=== PATIENT | female | born 1945 | race Caucasian/White ===

== ENCOUNTER 2017-11-03 15:09 | Inpatient (IN) | payer OTHER, MEDICAID ==
[~2017-11-03] VITALS: Ht 165.1 cm; Wt 97.0 kg
[2017-11-03] MEDS ORDERED: methylPREDNISolone SOD SUCC 125 MG/2 ML VL IV ONE ×2 (15:30)
[2017-11-03] MEDS ORDERED: ALBUTEROL SULF 2.5 MG/0.5ML(0.5%) NEB SOLN HHN ONE (15:30)
[2017-11-03] MEDS ORDERED: IPRATROPIUM BROM 0.5 MG/2.5ML INH SOL HHN ONE (15:30)
[2017-11-03 16:28] LABS: Alanine Aminotransferase 19 U/L (13-56); Albumin 3.5 g/dL (3.4-5.0); Alkaline Phosphatase 67 U/L (45-117); Anion Gap 7 (5-15); Aspartate Aminotransferase 29 U/L (15-37); Bilirubin, Total 0.4 mg/dL (0.2-1.0); Blood Urea Nitrogen 27 mg/dL (7-18); Calcium 8.6 mg/dL (8.5-10.1); Carbon Dioxide 28 mmol/L (21-32); Chloride 103 mmol/L (98-107); GFR African American 70 mL/min; GFR Non-African American 58 mL/min; Glucose 122 mg/dL (74-106); Magnesium 2.3 mg/dL (1.6-2.6); Potassium 4.3 mmol/L (3.5-5.1); Sodium 138 mmol/L (136-145); Total Protein 7.7 g/dL (6.4-8.2)
[2017-11-03 16:29] LABS: Basophils # (auto) 0 uL; Basophils % (auto) 0.4 % (0.0-2.0); Eosinophils # (auto) 0 uL; Eosinophils % (auto) 0.7 % (0.0-7.0); Hematocrit 49.5 % (36.0-46.0); Hemoglobin 16.3 g/dL (12.2-16.2); Lymphocytes # (auto) 1.1 uL; Lymphocytes % (auto) 17.5 % (10.0-50.0); Mean Corpuscular Hemoglobin 29.9 pg (28.0-32.0); Mean Corpuscular Hgb Conc. 32.9 g/dL (32.0-36.0); Mean Corpuscular Volume 90.9 fL (80.0-100.0); Monocytes # (auto) 0.9 uL; Monocytes % (auto) 13.7 % (0.0-12.0); Neutrophils # (auto) 4.3 uL; Neutrophils % (auto) 67.7 % (37.0-80.0); Nucleated Red Blood Cells % 0.8 %; Platelet Count (auto) 230 10^3/uL (140-450); Red Blood Cells 5.45 10^6/uL (4.0-5.20); Red Cell Distribution Width 14.8 % (11.8-14.3); White Blood Cell 6.4 10^3/uL (4.4-10.8)
[2017-11-03] MEDS ORDERED: MORPHINE SULFATE 10 MG/ML INJ 1ML SDV IV PRN ×2 (17:15)
[2017-11-03] MEDS ORDERED: ACETAMINOPHEN 500 MG TAB PO PRN (17:15)
[2017-11-03] MEDS ORDERED: LORazepam 0.5 MG TAB PO PRN (17:15)
[2017-11-03] MEDS ORDERED: OSELTAMIVIR 75 MG CAP PO ONE (17:15)
[2017-11-03] MEDS ORDERED: TEMAZEPAM 15 MG CAP PO PRN (17:15)
[2017-11-03] MEDS ORDERED: NITROGLYCERIN 0.4 MG SL TAB SL PRN (17:15)
[2017-11-03] MEDS ORDERED: PROMETHAZINE HCL 25 MG/ML 1ML IV PRN (17:15)
[2017-11-03] MEDS ORDERED: LACTULOSE 20Gm/30ML SOLN PO PRN (17:15)
[2017-11-03] MEDS: ALBUTEROL SULF 2.5 MG/0.5ML(0.5%) NEB SOLN NEB SCH (18:00)
[2017-11-03] MEDS: IPRATROPIUM BROM 0.5 MG/2.5ML INH SOL NEB SCH (18:00)
[2017-11-03] MEDS: SODIUM CHLORIDE 0.9% 1,000 ML IV SCH (18:00)
[2017-11-03] MEDS: methylPREDNISolone SOD SUCC 40 MG/ML VL IV SCH ×2 (18:59→23:58)
[2017-11-03] MEDS ORDERED: LORazepam 2MG/ML-1ML VIAL ONE (21:06)
[2017-11-03] MEDS: LORazepam 2MG/ML-1ML VIAL IV PRN (21:16)
[2017-11-03] MEDS ORDERED: MIDAZOLAM DRIP 50 mg/50mL 50 ML IV SCH (21:51)
[2017-11-03] MEDS ORDERED: PROPOFOL 100 ML IV SCH (21:51)
[2017-11-03] MEDS ORDERED: ETOMIDATE (2MG/ML) 20ML VIAL IV ONE (22:00)
[2017-11-03] MEDS ORDERED: SUCCINYLCHOLINE CHLORIDE 20 MG/ML 10ML VIAL IV ONE (22:00)
[2017-11-03] MEDS ORDERED: ALBUTEROL SULF 2.5 MG/0.5ML(0.5%) NEB SOLN ONE (22:10)
[2017-11-03] MEDS ORDERED: ALBUTEROL SULF 2.5 MG/0.5ML(0.5%) NEB SOLN NEB ONE (22:15)
[2017-11-03] MEDS ORDERED: SODIUM CHLORIDE 0.9% 500 ML IV ONE (22:30)
[2017-11-04] VITALS (11 sets, daily range): BP systolic 102–147; BP diastolic 59–74
[2017-11-04] MEDS: ALBUTEROL SULF 2.5 MG/0.5ML(0.5%) NEB SOLN NEB SCH ×4 (00:15→18:34)
[2017-11-04] MEDS: IPRATROPIUM BROM 0.5 MG/2.5ML INH SOL NEB SCH ×4 (00:15→18:34)
[2017-11-04] MEDS ORDERED: fentaNYL Drip 2500mCg/250mlNS 250 ML IV SCH (03:02)
[2017-11-04] MEDS ORDERED: fentaNYL Drip 2500mCg/250mlNS 250 ML IV ONE (03:07)
[2017-11-04] MEDS ORDERED: SUCCINYLCHOLINE CHLORIDE 20 MG/ML 10ML VIAL IV ONE (03:15)
[2017-11-04] MEDS: PROPOFOL 100 ML IV SCH ×2 (03:21→23:42)
[2017-11-04] MEDS: fentaNYL Drip 2500mCg/250mlNS 250 ML IV SCH (03:24)
[2017-11-04] MEDS ORDERED: PROPOFOL 100 ML IV ONE (03:35)
[2017-11-04] MEDS: methylPREDNISolone SOD SUCC 40 MG/ML VL IV SCH ×3 (06:14→18:30)
[2017-11-04] MEDS: SODIUM CHLORIDE 0.9% 1,000 ML IV SCH ×2 (06:45→19:31)
[2017-11-04 07:38] LABS: Cholesterol 144 mg/dL (< 200); HDL Cholesterol 59 mg/dL (40-59); LDL Cholesterol 79 mg/dL (< 100); Triglycerides 101 mg/dL (< 150)
[2017-11-04] MEDS ORDERED: OSELTAMIVIR 75 MG CAP PO SCH (10:00)
[2017-11-04] MEDS: LEVOFLOXACIN 500MG 100 ML IV SCH (11:00)
[2017-11-04] MEDS: PANTOPRAZOLE 40 MG TAB PO SCH (11:00)
[2017-11-04 13:34] LABS: Urine Bacteria NONE SEEN /hpf (None Seen); Urine Blood 1+ /uL (Negative); Urine Specific Gravity 1.031 (1.001-1.035); Urine WBC 3 /hpf (0 - 5)
[2017-11-04] MEDS ORDERED: ENOXAPARIN SOD 40 MG/0.4 ML SYRINGE SC ONE (17:00)
[2017-11-04] MEDS ORDERED: IOHEXOL 350 MG/ML 100ML IJ ONE (21:13)
[2017-11-05] VITALS (68 sets, daily range): BP systolic 95–150; BP diastolic 44–85
[2017-11-05] MEDS: methylPREDNISolone SOD SUCC 40 MG/ML VL IV SCH ×4 (00:18→17:45)
[2017-11-05] MEDS: ALBUTEROL SULF 2.5 MG/0.5ML(0.5%) NEB SOLN NEB SCH ×4 (00:56→19:15)
[2017-11-05] MEDS: IPRATROPIUM BROM 0.5 MG/2.5ML INH SOL NEB SCH ×4 (00:56→19:15)
[2017-11-05 04:54] LABS: Basophils # (auto) 0 uL; Basophils % (auto) 0.2 % (0.0-2.0); Eosinophils # (auto) 0 uL; Hematocrit 43.7 % (36.0-46.0); Hemoglobin 14.4 g/dL (12.2-16.2); Lymphocytes # (auto) 0.4 uL; Lymphocytes % (auto) 5.3 % (10.0-50.0); Mean Corpuscular Hemoglobin 29.7 pg (28.0-32.0); Mean Corpuscular Hgb Conc. 32.9 g/dL (32.0-36.0); Mean Corpuscular Volume 90.3 fL (80.0-100.0); Monocytes # (auto) 0.5 uL; Monocytes % (auto) 5.7 % (0.0-12.0); Neutrophils # (auto) 7.4 uL; Neutrophils % (auto) 88.8 % (37.0-80.0); Nucleated Red Blood Cells % 0.1 %; Platelet Count (auto) 240 10^3/uL (140-450); Red Blood Cells 4.83 10^6/uL (4.0-5.20); Red Cell Distribution Width 14.3 % (11.8-14.3); White Blood Cell 8.3 10^3/uL (4.4-10.8)
[2017-11-05 05:10] LABS: Albumin 2.9 g/dL (3.4-5.0); BUN/Creatinine Ratio 37.7; Calcium 8.4 mg/dL (8.5-10.1); Potassium 3.9 mmol/L (3.5-5.1)
[2017-11-05 05:13] LABS: Bilirubin, Total 0.3 mg/dL (0.2-1.0); Total Protein 6.5 g/dL (6.4-8.2)
[2017-11-05] MEDS: fentaNYL Drip 2500mCg/250mlNS 250 ML IV SCH ×2 (05:45→13:56)
[2017-11-05] MEDS: MIDAZOLAM DRIP 50 mg/50mL 50 ML IV SCH ×2 (08:11→20:00)
[2017-11-05] MEDS: SODIUM CHLORIDE 0.9% 1,000 ML IV SCH ×2 (09:04→11:44)
[2017-11-05] MEDS: ENOXAPARIN SOD 40 MG/0.4 ML SYRINGE SC SCH (11:44)
[2017-11-05] MEDS: LEVOFLOXACIN 500MG 100 ML IV SCH (11:44)
[2017-11-05] MEDS: PANTOPRAZOLE 40 MG TAB PO SCH (11:44)
[2017-11-05] MEDS: TERBUTALINE SULFATE 5 MG TAB PO SCH ×2 (12:17→22:23)
[2017-11-05] MEDS: BUDESONIDE (INHALATION) 0.5 MG/2 ML NEB NEB SCH (19:16)
[2017-11-06] VITALS (48 sets, daily range): BP systolic 103–149; BP diastolic 43–81
[2017-11-06] MEDS: IPRATROPIUM BROM 0.5 MG/2.5ML INH SOL NEB SCH ×4 (00:18→19:11)
[2017-11-06] MEDS: ALBUTEROL SULF 2.5 MG/0.5ML(0.5%) NEB SOLN NEB SCH ×4 (00:18→19:11)
[2017-11-06] MEDS ORDERED: METO25TA5 PO (01:53)
[2017-11-06] MEDS ORDERED: LEVO175T31 PO (01:56)
[2017-11-06] MEDS ORDERED: DIGO0.1262 PO (01:57)
[2017-11-06] MEDS ORDERED: [UNRECOGNIZED DRUG - CODE] PO (02:00)
[2017-11-06] MEDS ORDERED: SERT-274 PO (02:01)
[2017-11-06] MEDS ORDERED: PRAV20TA3 PO (02:03)
[2017-11-06] MEDS ORDERED: ALBU2TAB4 PO (02:07)
[2017-11-06] MEDS ORDERED: ALBUAER3 IN (02:08)
[2017-11-06] MEDS ORDERED: UMEC1AER IN (02:09)
[2017-11-06 05:05] LABS: Basophils # (auto) 0 uL; Eosinophils # (auto) 0 uL; Hemoglobin 14.4 g/dL (12.2-16.2); Lymphocytes # (auto) 0.3 uL; Lymphocytes % (auto) 4.4 % (10.0-50.0); Mean Corpuscular Hemoglobin 30.2 pg (28.0-32.0); Mean Corpuscular Hgb Conc. 33.5 g/dL (32.0-36.0); Mean Corpuscular Volume 90.1 fL (80.0-100.0); Monocytes # (auto) 0.5 uL; Monocytes % (auto) 6.6 % (0.0-12.0); Neutrophils # (auto) 6.6 uL; Nucleated Red Blood Cells % 0.1 %; Platelet Count (auto) 223 10^3/uL (140-450); Red Blood Cells 4.78 10^6/uL (4.0-5.20); Red Cell Distribution Width 14.3 % (11.8-14.3); White Blood Cell 7.5 10^3/uL (4.4-10.8)
[2017-11-06 05:15] LABS: Albumin 2.8 g/dL (3.4-5.0); BUN/Creatinine Ratio 44.8; Bilirubin, Total 0.3 mg/dL (0.2-1.0); Calcium 8.1 mg/dL (8.5-10.1); Potassium 3.8 mmol/L (3.5-5.1); Total Protein 6.2 g/dL (6.4-8.2)
[2017-11-06] MEDS: MIDAZOLAM DRIP 50 mg/50mL 50 ML IV SCH ×4 (05:36→22:08)
[2017-11-06] MEDS: BUDESONIDE (INHALATION) 0.5 MG/2 ML NEB NEB SCH ×2 (06:38→19:12)
[2017-11-06] MEDS: PANTOPRAZOLE 40 MG TAB PO SCH (10:26)
[2017-11-06] MEDS: TERBUTALINE SULFATE 5 MG TAB PO SCH ×2 (10:26→21:44)
[2017-11-06] MEDS: ENOXAPARIN SOD 40 MG/0.4 ML SYRINGE SC SCH (10:26)
[2017-11-06] MEDS: LEVOFLOXACIN 500MG 100 ML IV SCH (10:26)
[2017-11-06] MEDS: SODIUM CHLORIDE 0.9% 1,000 ML IV SCH (11:44)
[2017-11-06] MEDS: methylPREDNISolone SOD SUCC 40 MG/ML VL IV SCH ×4 (12:00→23:44)
[2017-11-07] VITALS (83 sets, daily range): BP systolic 96–166; BP diastolic 40–123
[2017-11-07] MEDS: IPRATROPIUM BROM 0.5 MG/2.5ML INH SOL NEB SCH ×4 (00:18→19:36)
[2017-11-07] MEDS: ALBUTEROL SULF 2.5 MG/0.5ML(0.5%) NEB SOLN NEB SCH ×4 (00:18→19:37)
[2017-11-07] MEDS: fentaNYL Drip 2500mCg/250mlNS 250 ML IV SCH ×2 (00:56→19:50)
[2017-11-07 04:26] LABS: Basophils # (auto) 0 uL; Basophils % (auto) 0.1 % (0.0-2.0); Eosinophils # (auto) 0 uL; Hemoglobin 14.8 g/dL (12.2-16.2); Lymphocytes # (auto) 0.4 uL; Lymphocytes % (auto) 5.4 % (10.0-50.0); Mean Corpuscular Hemoglobin 30.3 pg (28.0-32.0); Mean Corpuscular Hgb Conc. 33.6 g/dL (32.0-36.0); Mean Corpuscular Volume 90.1 fL (80.0-100.0); Monocytes # (auto) 0.3 uL; Monocytes % (auto) 5.2 % (0.0-12.0); Neutrophils # (auto) 5.8 uL; Neutrophils % (auto) 89.3 % (37.0-80.0); Platelet Count (auto) 232 10^3/uL (140-450); Red Blood Cells 4.88 10^6/uL (4.0-5.20); Red Cell Distribution Width 14.5 % (11.8-14.3); White Blood Cell 6.5 10^3/uL (4.4-10.8)
[2017-11-07 04:55] LABS: Albumin 2.8 g/dL (3.4-5.0); BUN/Creatinine Ratio 44.3; Bilirubin, Total 0.2 mg/dL (0.2-1.0); Calcium 7.9 mg/dL (8.5-10.1); Potassium 4.3 mmol/L (3.5-5.1); Total Protein 6.3 g/dL (6.4-8.2)
[2017-11-07] MEDS: SODIUM CHLORIDE 0.9% 1,000 ML IV SCH ×4 (05:00→23:57)
[2017-11-07] MEDS: methylPREDNISolone SOD SUCC 40 MG/ML VL IV SCH ×4 (05:35→23:57)
[2017-11-07] MEDS: BUDESONIDE (INHALATION) 0.5 MG/2 ML NEB NEB SCH ×2 (06:51→22:27)
[2017-11-07] MEDS ORDERED: DEXMEDETOMIDINE HCL 400 MCG in D5W 5% 96 ML IV SCH (08:00)
[2017-11-07] MEDS: LEVOFLOXACIN 500MG 100 ML IV SCH (10:16)
[2017-11-07] MEDS: TERBUTALINE SULFATE 5 MG TAB PO SCH ×2 (10:16→21:38)
[2017-11-07] MEDS: PANTOPRAZOLE 40 MG TAB PO SCH (10:16)
[2017-11-07] MEDS: ENOXAPARIN SOD 40 MG/0.4 ML SYRINGE SC SCH (10:16)
[2017-11-07] MEDS: LORazepam 2MG/ML-1ML VIAL IV PRN (10:57)
[2017-11-07] MEDS: MIDAZOLAM DRIP 50 mg/50mL 50 ML IV SCH (13:46)
[2017-11-08] VITALS (91 sets, daily range): BP systolic 101–169; BP diastolic 36–102
[2017-11-08] MEDS: IPRATROPIUM BROM 0.5 MG/2.5ML INH SOL NEB SCH ×4 (00:26→18:04)
[2017-11-08] MEDS: ALBUTEROL SULF 2.5 MG/0.5ML(0.5%) NEB SOLN NEB SCH ×4 (00:26→18:04)
[2017-11-08] MEDS: SODIUM CHLORIDE 0.9% 1,000 ML IV SCH ×3 (02:35→11:21)
[2017-11-08 04:20] LABS: Basophils # (auto) 0 uL; Basophils % (auto) 0.1 % (0.0-2.0); Eosinophils # (auto) 0 uL; Hematocrit 46.2 % (36.0-46.0); Hemoglobin 15.3 g/dL (12.2-16.2); Lymphocytes # (auto) 0.4 uL; Lymphocytes % (auto) 6.4 % (10.0-50.0); Mean Corpuscular Hemoglobin 30.2 pg (28.0-32.0); Mean Corpuscular Hgb Conc. 33.1 g/dL (32.0-36.0); Mean Corpuscular Volume 91.3 fL (80.0-100.0); Monocytes # (auto) 0.3 uL; Monocytes % (auto) 4.4 % (0.0-12.0); Neutrophils # (auto) 5.5 uL; Neutrophils % (auto) 89.1 % (37.0-80.0); Nucleated Red Blood Cells % 0.1 %; Platelet Count (auto) 232 10^3/uL (140-450); Red Blood Cells 5.06 10^6/uL (4.0-5.20); Red Cell Distribution Width 14.8 % (11.8-14.3); White Blood Cell 6.2 10^3/uL (4.4-10.8)
[2017-11-08 04:47] LABS: Albumin 2.9 g/dL (3.4-5.0); BUN/Creatinine Ratio 48.8; Bilirubin, Total 0.3 mg/dL (0.2-1.0); Potassium 4.5 mmol/L (3.5-5.1); Total Protein 6.7 g/dL (6.4-8.2)
[2017-11-08] MEDS: methylPREDNISolone SOD SUCC 40 MG/ML VL IV SCH ×3 (05:34→20:01)
[2017-11-08] MEDS: BUDESONIDE (INHALATION) 0.5 MG/2 ML NEB NEB SCH ×2 (06:46→18:04)
[2017-11-08] MEDS: TERBUTALINE SULFATE 5 MG TAB PO SCH ×2 (09:59→22:06)
[2017-11-08] MEDS: LEVOFLOXACIN 500MG 100 ML IV SCH (09:59)
[2017-11-08] MEDS: ENOXAPARIN SOD 40 MG/0.4 ML SYRINGE SC SCH (09:59)
[2017-11-08] MEDS: PANTOPRAZOLE 40 MG TAB PO SCH (09:59)
[2017-11-09] VITALS (95 sets, daily range): BP systolic 121–184; BP diastolic 56–119
[2017-11-09] MEDS: MIDAZOLAM DRIP 50 mg/50mL 50 ML IV SCH (00:07)
[2017-11-09] MEDS: methylPREDNISolone SOD SUCC 40 MG/ML VL IV SCH ×4 (00:07→21:44)
[2017-11-09] MEDS: ALBUTEROL SULF 2.5 MG/0.5ML(0.5%) NEB SOLN NEB SCH ×5 (00:20→23:50)
[2017-11-09] MEDS: IPRATROPIUM BROM 0.5 MG/2.5ML INH SOL NEB SCH ×5 (00:20→23:50)
[2017-11-09] MEDS: fentaNYL Drip 2500mCg/250mlNS 250 ML IV SCH ×2 (01:37→14:11)
[2017-11-09 03:58] LABS: Calcium 8.4 mg/dL (8.5-10.1); Potassium 4.6 mmol/L (3.5-5.1)
[2017-11-09] MEDS: SODIUM CHLORIDE 0.9% 1,000 ML IV SCH ×2 (04:45→15:21)
[2017-11-09] MEDS: BUDESONIDE (INHALATION) 0.5 MG/2 ML NEB NEB SCH ×2 (06:25→18:13)
[2017-11-09] MEDS: TERBUTALINE SULFATE 5 MG TAB PO SCH (10:09)
[2017-11-09] MEDS: ENOXAPARIN SOD 40 MG/0.4 ML SYRINGE SC SCH (10:09)
[2017-11-09] MEDS: LEVOFLOXACIN 500MG 100 ML IV SCH (10:09)
[2017-11-09] MEDS: PANTOPRAZOLE 40 MG TAB PO SCH (10:10)
[2017-11-09] MEDS: ALBUTEROL SULF 2.5 MG/0.5ML(0.5%) NEB SOLN NEB PRN (10:48)
[2017-11-09] MEDS: LORazepam 2MG/ML-1ML VIAL IV PRN ×3 (11:08→21:44)
[2017-11-09] MEDS: HYDROcodone-ACET 5/325MG TAB PO PRN (11:08)
[2017-11-10] VITALS (79 sets, daily range): BP systolic 81–189; BP diastolic 38–105
[2017-11-10] MEDS: TERBUTALINE SULFATE 5 MG TAB PO SCH ×3 (00:33→22:56)
[2017-11-10] MEDS: LORazepam 2MG/ML-1ML VIAL IV PRN ×2 (04:05→10:54)
[2017-11-10 04:33] LABS: BUN/Creatinine Ratio 55.2; Calcium 8.2 mg/dL (8.5-10.1); Potassium 4.9 mmol/L (3.5-5.1)
[2017-11-10] MEDS: ALBUTEROL SULF 2.5 MG/0.5ML(0.5%) NEB SOLN NEB SCH ×3 (06:17→18:38)
[2017-11-10] MEDS: IPRATROPIUM BROM 0.5 MG/2.5ML INH SOL NEB SCH ×3 (06:17→18:37)
[2017-11-10] MEDS: BUDESONIDE (INHALATION) 0.5 MG/2 ML NEB NEB SCH ×2 (06:18→22:10)
[2017-11-10] MEDS: SODIUM CHLORIDE 0.9% 1,000 ML IV SCH (08:00)
[2017-11-10] MEDS: fentaNYL Drip 2500mCg/250mlNS 250 ML IV SCH (08:00)
[2017-11-10] MEDS ORDERED: CHLORHEXIDINE 0.12% ORAL rinse 473ML MT ONE (08:19)
[2017-11-10] MEDS: ENOXAPARIN SOD 40 MG/0.4 ML SYRINGE SC SCH (10:00)
[2017-11-10] MEDS: methylPREDNISolone SOD SUCC 40 MG/ML VL IV SCH ×2 (10:00→22:56)
[2017-11-10] MEDS: PANTOPRAZOLE 40 MG TAB PO SCH (10:00)
[2017-11-10] MEDS: LEVOFLOXACIN 500MG 100 ML IV SCH (10:00)
[2017-11-10] MEDS: ALBUTEROL SULF 2.5 MG/0.5ML(0.5%) NEB SOLN NEB PRN (10:38)
[2017-11-10] MEDS ORDERED: EPINEPHrine HCL 0.5 ML NEB ONE (12:38)
[2017-11-10] MEDS ORDERED: EPINEPHrine HCL 0.5 ML NEB NEB ONE (12:45)
[2017-11-10] MEDS ORDERED: ETOMIDATE (2MG/ML) 20ML VIAL IV ONE (12:58)
[2017-11-10] MEDS ORDERED: PROPOFOL 100 ML IV ONE (12:59)
[2017-11-10] MEDS: PROPOFOL 100 ML IV SCH ×3 (13:00→18:50)
[2017-11-10] MEDS ORDERED: VANCOMYCIN PER PHARMACY 0 MG IV SCH (13:30)
[2017-11-10] MEDS ORDERED: PIPERACILLIN-TAZOB 3.375GM 50 ML IV ONE (13:30)
[2017-11-10] MEDS ORDERED: PIPERACILLIN-TAZOB 3.375GM 50 ML IV SCH (13:30)
[2017-11-10] MEDS: VANCOMYCIN 1,250 MG in D5W 5% 250 ML IV SCH (15:00)
[2017-11-10] MEDS: PIPERACILLIN-TAZOB 3.375GM 50 ML IV SCH (18:00)
[2017-11-10] MEDS: FUROSEMIDE 20 MG/2 ML VIAL IV SCH (18:00)
[2017-11-10] MEDS ORDERED: LIDOCAINE 1% HCL (LOCAL ANESTH.) INJ 20ML MDV ID ONE (19:30)
[2017-11-10] MEDS: SODIUM CHLOR 0.9% PF (SALINE LOCK) 10ML VIAL IV SCH (22:55)
[2017-11-10] MEDS: NYSTATIN (MOUTH-THROAT) 500,000 UNITS/5 ML SUSP MT SCH ×2 (22:55→22:57)
[2017-11-11] VITALS (81 sets, daily range): BP systolic 97–157; BP diastolic 39–96
[2017-11-11] MEDS: PIPERACILLIN-TAZOB 3.375GM 50 ML IV SCH ×4 (00:02→18:18)
[2017-11-11] MEDS: VANCOMYCIN 1,250 MG in D5W 5% 250 ML IV SCH ×2 (03:04→15:00)
[2017-11-11 03:52] LABS: Basophils # (auto) 0 uL; Basophils % (auto) 0.2 % (0.0-2.0); Eosinophils # (auto) 0 uL; Hemoglobin 16.4 g/dL (12.2-16.2); Lymphocytes # (auto) 0.4 uL; Lymphocytes % (auto) 3.4 % (10.0-50.0); Mean Corpuscular Hgb Conc. 33.4 g/dL (32.0-36.0); Mean Corpuscular Volume 89.8 fL (80.0-100.0); Monocytes # (auto) 0.6 uL; Monocytes % (auto) 5.4 % (0.0-12.0); Neutrophils # (auto) 9.3 uL; Nucleated Red Blood Cells % 0.4 %; Platelet Count (auto) 185 10^3/uL (140-450); Red Blood Cells 5.45 10^6/uL (4.0-5.20); Red Cell Distribution Width 14.2 % (11.8-14.3); White Blood Cell 10.3 10^3/uL (4.4-10.8)
[2017-11-11 04:00] LABS: Albumin 2.7 g/dL (3.4-5.0); BUN/Creatinine Ratio 34.1; Calcium 8.5 mg/dL (8.5-10.1); Potassium 4.1 mmol/L (3.5-5.1)
[2017-11-11 04:02] LABS: Bilirubin, Total 2.6 mg/dL (0.2-1.0)
[2017-11-11] MEDS: IPRATROPIUM BROM 0.5 MG/2.5ML INH SOL NEB SCH ×4 (06:33→18:59)
[2017-11-11] MEDS: BUDESONIDE (INHALATION) 0.5 MG/2 ML NEB NEB SCH ×2 (06:34→19:00)
[2017-11-11] MEDS: ALBUTEROL SULF 2.5 MG/0.5ML(0.5%) NEB SOLN NEB SCH ×4 (06:34→19:00)
[2017-11-11] MEDS: FUROSEMIDE 20 MG/2 ML VIAL IV SCH ×2 (06:44→18:18)
[2017-11-11] MEDS: NYSTATIN (MOUTH-THROAT) 500,000 UNITS/5 ML SUSP MT SCH ×4 (06:44→23:37)
[2017-11-11] MEDS: SODIUM CHLOR 0.9% PF (SALINE LOCK) 10ML VIAL IV SCH ×2 (10:00→23:37)
[2017-11-11] MEDS: ENOXAPARIN SOD 40 MG/0.4 ML SYRINGE SC SCH (10:29)
[2017-11-11] MEDS: PANTOPRAZOLE 40 MG TAB PO SCH (10:29)
[2017-11-11] MEDS: methylPREDNISolone SOD SUCC 40 MG/ML VL IV SCH ×2 (10:29→23:37)
[2017-11-11] MEDS: TERBUTALINE SULFATE 5 MG TAB PO SCH ×2 (10:29→23:38)
[2017-11-11] MEDS ORDERED: TPN PER PHARMACY 0 ML IV SCH (16:30)
[2017-11-11] MEDS ORDERED: DEXTROSE (50%) 50ML SYRG IV SCH (20:00)
[2017-11-11] MEDS: CLINIMIX PER PHARMACY IV NR (20:54)
[2017-11-12] VITALS (111 sets, daily range): BP systolic 71–174; BP diastolic 36–109
[2017-11-12] MEDS: PIPERACILLIN-TAZOB 3.375GM 50 ML IV SCH ×4 (00:25→18:00)
[2017-11-12] MEDS: InsuLIN REG 1unit/0.01ml Soln (100units/ml) SC SCH ×4 (00:26→18:27)
[2017-11-12] MEDS: ACCU-CHEK COMFORT CURVE STRIP VI SCH ×4 (00:26→18:28)
[2017-11-12] MEDS: ALBUTEROL SULF 2.5 MG/0.5ML(0.5%) NEB SOLN NEB SCH ×4 (00:28→18:32)
[2017-11-12] MEDS: IPRATROPIUM BROM 0.5 MG/2.5ML INH SOL NEB SCH ×4 (00:28→18:32)
[2017-11-12] MEDS: VANCOMYCIN 1,250 MG in D5W 5% 250 ML IV SCH (03:46)
[2017-11-12 04:06] LABS: Hematocrit 51.5 % (36.0-46.0); Hemoglobin 17.1 g/dL (12.2-16.2); Mean Corpuscular Hemoglobin 29.6 pg (28.0-32.0); Mean Corpuscular Hgb Conc. 33.3 g/dL (32.0-36.0); Mean Corpuscular Volume 89.1 fL (80.0-100.0); Platelet Count (auto) 190 10^3/uL (140-450); Red Blood Cells 5.78 10^6/uL (4.0-5.20); Red Cell Distribution Width 14.4 % (11.8-14.3); White Blood Cell 11.7 10^3/uL (4.4-10.8)
[2017-11-12 04:19] LABS: Band Neutrophils % (manual) 0; Basophils % (manual) 0 (0.0-2.0); Blast Cells 0; Eosinophils % (manual) 0 (0-7); Metamyelocytes % 0; Myelocytes % 0; Promyelocytes % 0; Reactive Lymphocytes 0
[2017-11-12 04:23] LABS: Albumin 2.9 g/dL (3.4-5.0); BUN/Creatinine Ratio 35.1; Calcium 8.8 mg/dL (8.5-10.1); Potassium 4.1 mmol/L (3.5-5.1)
[2017-11-12 04:25] LABS: Bilirubin, Total 1.2 mg/dL (0.2-1.0); Total Protein 6.1 g/dL (6.4-8.2)
[2017-11-12 04:32] LABS: Magnesium 2.4 mg/dL (1.6-2.6); Phosphorus 4.7 mg/dL (2.5-4.90); Pre Albumin 33.3 mg/dL (20.0-40.0)
[2017-11-12] MEDS: FUROSEMIDE 20 MG/2 ML VIAL IV SCH ×2 (06:00→18:00)
[2017-11-12 06:18] LABS: Lymphocytes % (manual) 6 (10.0-50.0); Monocytes % (manual) 3 (0-12)
[2017-11-12] MEDS: BUDESONIDE (INHALATION) 0.5 MG/2 ML NEB NEB SCH ×2 (06:20→22:25)
[2017-11-12] MEDS: NYSTATIN (MOUTH-THROAT) 500,000 UNITS/5 ML SUSP MT SCH ×4 (06:56→22:20)
[2017-11-12] MEDS: NOREPINEPHRINE 8 MG/250ML KIT 250 ML IV SCH ×2 (07:00→14:50)
[2017-11-12] MEDS: PROPOFOL 100 ML IV SCH ×3 (08:25→20:30)
[2017-11-12] MEDS: ENOXAPARIN SOD 40 MG/0.4 ML SYRINGE SC SCH (10:35)
[2017-11-12] MEDS: PANTOPRAZOLE 40 MG/10 ML VIAL IV SCH (10:35)
[2017-11-12] MEDS: SODIUM CHLOR 0.9% PF (SALINE LOCK) 10ML VIAL IV SCH ×2 (10:36→21:35)
[2017-11-12] MEDS: methylPREDNISolone SOD SUCC 40 MG/ML VL IV SCH ×2 (10:37→21:36)
[2017-11-12] MEDS: TERBUTALINE SULFATE 5 MG TAB PO SCH ×2 (10:38→22:21)
[2017-11-12] MEDS: VANCOMYCIN 1,500 MG in D5W 5% 250 ML IV SCH (13:02)
[2017-11-12] MEDS: fentaNYL Drip 2500mCg/250mlNS 250 ML IV SCH ×2 (18:55→19:00)
[2017-11-12] MEDS: CLINIMIX PER PHARMACY IV NR (19:49)
[2017-11-12] MEDS ORDERED: TPN PER PHARMACY IV NR ×6 (20:00)
[2017-11-13] VITALS (99 sets, daily range): BP systolic 81–191; BP diastolic 36–105
[2017-11-13] MEDS: IPRATROPIUM BROM 0.5 MG/2.5ML INH SOL NEB SCH ×4 (00:21→18:53)
[2017-11-13] MEDS: ALBUTEROL SULF 2.5 MG/0.5ML(0.5%) NEB SOLN NEB SCH ×4 (00:21→18:53)
[2017-11-13] MEDS: PIPERACILLIN-TAZOB 3.375GM 50 ML IV SCH ×4 (00:28→17:37)
[2017-11-13] MEDS: ACCU-CHEK COMFORT CURVE STRIP VI SCH ×4 (00:28→17:42)
[2017-11-13] MEDS: InsuLIN REG 1unit/0.01ml Soln (100units/ml) SC SCH ×4 (00:28→17:42)
[2017-11-13] MEDS: VANCOMYCIN 1,500 MG in D5W 5% 250 ML IV SCH ×2 (01:02→21:18)
[2017-11-13 04:29] LABS: Hematocrit 47.9 % (36.0-46.0); Hemoglobin 16.2 g/dL (12.2-16.2); Mean Corpuscular Hgb Conc. 33.9 g/dL (32.0-36.0); Mean Corpuscular Volume 88.4 fL (80.0-100.0); Platelet Count (auto) 195 10^3/uL (140-450); Red Blood Cells 5.42 10^6/uL (4.0-5.20)
[2017-11-13 04:49] LABS: Albumin 2.6 g/dL (3.4-5.0); BUN/Creatinine Ratio 38.7; Bilirubin, Total 0.9 mg/dL (0.2-1.0); Calcium 8.1 mg/dL (8.5-10.1); Magnesium 2.6 mg/dL (1.6-2.6); Phosphorus 3.7 mg/dL (2.5-4.90); Potassium 3.9 mmol/L (3.5-5.1)
[2017-11-13 05:14] LABS: Band Neutrophils % (manual) 0; Eosinophils % (manual) 0 (0-7)
[2017-11-13 05:15] LABS: Basophils % (manual) 0 (0.0-2.0); Blast Cells 0; Metamyelocytes % 0; Myelocytes % 0; Promyelocytes % 0; Reactive Lymphocytes 0
[2017-11-13] MEDS: NYSTATIN (MOUTH-THROAT) 500,000 UNITS/5 ML SUSP MT SCH ×4 (05:51→22:02)
[2017-11-13] MEDS: FUROSEMIDE 20 MG/2 ML VIAL IV SCH ×2 (05:51→17:38)
[2017-11-13] MEDS: BUDESONIDE (INHALATION) 0.5 MG/2 ML NEB NEB SCH ×2 (06:35→18:54)
[2017-11-13 07:31] LABS: Lymphocytes % (manual) 7 (10.0-50.0); Monocytes % (manual) 5 (0-12)
[2017-11-13] MEDS: TERBUTALINE SULFATE 5 MG TAB PO SCH ×2 (09:40→22:02)
[2017-11-13] MEDS: methylPREDNISolone SOD SUCC 40 MG/ML VL IV SCH ×2 (09:40→22:02)
[2017-11-13] MEDS: PANTOPRAZOLE 40 MG/10 ML VIAL IV SCH (09:40)
[2017-11-13] MEDS: ENOXAPARIN SOD 40 MG/0.4 ML SYRINGE SC SCH (09:40)
[2017-11-13] MEDS: SODIUM CHLOR 0.9% PF (SALINE LOCK) 10ML VIAL IV SCH ×2 (09:40→22:02)
[2017-11-13] MEDS ORDERED: VANCOMYCIN 1,500 MG in SODIUM CHL 0.9% 250 ML IV SCH (13:00)
[2017-11-13] MEDS: fentaNYL Drip 2500mCg/250mlNS 250 ML IV SCH (13:57)
[2017-11-13] MEDS ORDERED: TPN PER PHARMACY IV NR ×9 (20:00)
[2017-11-14] VITALS (71 sets, daily range): BP systolic 79–163; BP diastolic 37–106
[2017-11-14] MEDS: IPRATROPIUM BROM 0.5 MG/2.5ML INH SOL NEB SCH ×4 (00:30→18:38)
[2017-11-14] MEDS: ALBUTEROL SULF 2.5 MG/0.5ML(0.5%) NEB SOLN NEB SCH ×4 (00:30→18:38)
[2017-11-14 03:56] LABS: Basophils # (auto) 0.1 uL; Basophils % (auto) 0.4 % (0.0-2.0); Eosinophils # (auto) 0 uL; Eosinophils % (auto) 0.2 % (0.0-7.0); Hematocrit 49.1 % (36.0-46.0); Hemoglobin 16.4 g/dL (12.2-16.2); Lymphocytes # (auto) 0.7 uL; Lymphocytes % (auto) 4.5 % (10.0-50.0); Mean Corpuscular Hemoglobin 29.9 pg (28.0-32.0); Mean Corpuscular Hgb Conc. 33.4 g/dL (32.0-36.0); Mean Corpuscular Volume 89.5 fL (80.0-100.0); Monocytes # (auto) 1.4 uL; Monocytes % (auto) 9.2 % (0.0-12.0); Neutrophils % (auto) 85.7 % (37.0-80.0); Platelet Count (auto) 212 10^3/uL (140-450); Red Blood Cells 5.48 10^6/uL (4.0-5.20); Red Cell Distribution Width 14.3 % (11.8-14.3); White Blood Cell 15.2 10^3/uL (4.4-10.8)
[2017-11-14 04:27] LABS: Albumin 2.8 g/dL (3.4-5.0); BUN/Creatinine Ratio 36.2; Bilirubin, Total 0.8 mg/dL (0.2-1.0); Calcium 8.4 mg/dL (8.5-10.1); Magnesium 2.4 mg/dL (1.6-2.6); Phosphorus 3.1 mg/dL (2.5-4.90); Potassium 4.1 mmol/L (3.5-5.1); Total Protein 6.3 g/dL (6.4-8.2)
[2017-11-14] MEDS: fentaNYL Drip 2500mCg/250mlNS 250 ML IV SCH (04:38)
[2017-11-14] MEDS: NYSTATIN (MOUTH-THROAT) 500,000 UNITS/5 ML SUSP MT SCH ×4 (06:07→22:00)
[2017-11-14] MEDS: PIPERACILLIN-TAZOB 3.375GM 50 ML IV SCH ×5 (06:07→23:45)
[2017-11-14] MEDS: InsuLIN REG 1unit/0.01ml Soln (100units/ml) SC SCH ×5 (06:07→23:45)
[2017-11-14] MEDS: ACCU-CHEK COMFORT CURVE STRIP VI SCH ×5 (06:07→23:45)
[2017-11-14] MEDS: FUROSEMIDE 20 MG/2 ML VIAL IV SCH ×2 (06:07→17:47)
[2017-11-14] MEDS: BUDESONIDE (INHALATION) 0.5 MG/2 ML NEB NEB SCH ×2 (06:48→18:38)
[2017-11-14] MEDS: NOREPINEPHRINE 8 MG/250ML KIT 250 ML IV SCH (07:00)
[2017-11-14] MEDS: SODIUM CHLORIDE 0.9% 1,000 ML IV SCH (08:15)
[2017-11-14] MEDS: PROPOFOL 100 ML IV SCH (09:26)
[2017-11-14] MEDS: PANTOPRAZOLE 40 MG/10 ML VIAL IV SCH (10:21)
[2017-11-14] MEDS: TERBUTALINE SULFATE 5 MG TAB PO SCH ×2 (10:21→22:00)
[2017-11-14] MEDS: SODIUM CHLOR 0.9% PF (SALINE LOCK) 10ML VIAL IV SCH ×2 (10:21→22:00)
[2017-11-14] MEDS: ENOXAPARIN SOD 40 MG/0.4 ML SYRINGE SC SCH (10:21)
[2017-11-14] MEDS: methylPREDNISolone SOD SUCC 40 MG/ML VL IV SCH ×2 (10:21→22:00)
[2017-11-14] MEDS: VANCOMYCIN 1,500 MG in D5W 5% 250 ML IV SCH (14:47)
[2017-11-14 15:29] LABS: INR 1.05 (0.9-1.15); Prothrombin Time 11.4 sec (9.37-12.3)
[2017-11-14] MEDS: LORazepam 2MG/ML-1ML VIAL IV PRN ×2 (16:11→23:45)
[2017-11-14] MEDS ORDERED: POTASSIUM PHOSPHATE IV NR ×9 (20:00)
[2017-11-14] MEDS ORDERED: SODIUM CHLORIDE IV NR ×9 (20:00)
[2017-11-14] MEDS ORDERED: POTASSIUM CHLORIDE IV NR ×9 (20:00)
[2017-11-14] MEDS ORDERED: [UNRECOGNIZED DRUG - OTHER] IV NR ×9 (20:00)
[2017-11-15] VITALS (58 sets, daily range): BP systolic 91–160; BP diastolic 42–114
[2017-11-15] MEDS: IPRATROPIUM BROM 0.5 MG/2.5ML INH SOL NEB SCH ×4 (00:19→19:07)
[2017-11-15] MEDS: ALBUTEROL SULF 2.5 MG/0.5ML(0.5%) NEB SOLN NEB SCH ×4 (00:19→19:07)
[2017-11-15] MEDS: fentaNYL Drip 2500mCg/250mlNS 250 ML IV SCH (00:30)
[2017-11-15 04:30] LABS: Basophils # (auto) 0 uL; Eosinophils # (auto) 0 uL; Eosinophils % (auto) 0.1 % (0.0-7.0); Hematocrit 48.2 % (36.0-46.0); Hemoglobin 16.2 g/dL (12.2-16.2); Lymphocytes # (auto) 0.5 uL; Lymphocytes % (auto) 3.3 % (10.0-50.0); Mean Corpuscular Hemoglobin 30.1 pg (28.0-32.0); Mean Corpuscular Hgb Conc. 33.6 g/dL (32.0-36.0); Mean Corpuscular Volume 89.6 fL (80.0-100.0); Monocytes # (auto) 1.1 uL; Monocytes % (auto) 6.6 % (0.0-12.0); Neutrophils # (auto) 14.4 uL; Nucleated Red Blood Cells % 0.1 %; Platelet Count (auto) 246 10^3/uL (140-450); Red Blood Cells 5.39 10^6/uL (4.0-5.20)
[2017-11-15 04:56] LABS: Albumin 2.8 g/dL (3.4-5.0); BUN/Creatinine Ratio 45.5; Bilirubin, Total 0.7 mg/dL (0.2-1.0); Calcium 8.6 mg/dL (8.5-10.1); Magnesium 2.5 mg/dL (1.6-2.6); Phosphorus 3.6 mg/dL (2.5-4.90); Potassium 4.4 mmol/L (3.5-5.1); Total Protein 6.6 g/dL (6.4-8.2)
[2017-11-15] MEDS: LORazepam 2MG/ML-1ML VIAL IV PRN ×2 (05:03→18:29)
[2017-11-15] MEDS: NYSTATIN (MOUTH-THROAT) 500,000 UNITS/5 ML SUSP MT SCH ×4 (05:50→21:55)
[2017-11-15] MEDS: PIPERACILLIN-TAZOB 3.375GM 50 ML IV SCH ×3 (05:51→18:25)
[2017-11-15] MEDS: FUROSEMIDE 20 MG/2 ML VIAL IV SCH ×2 (05:51→16:58)
[2017-11-15] MEDS: InsuLIN REG 1unit/0.01ml Soln (100units/ml) SC SCH ×3 (05:51→18:29)
[2017-11-15] MEDS: ACCU-CHEK COMFORT CURVE STRIP VI SCH ×3 (05:51→18:25)
[2017-11-15] MEDS: BUDESONIDE (INHALATION) 0.5 MG/2 ML NEB NEB SCH (06:16)
[2017-11-15] MEDS: NOREPINEPHRINE 8 MG/250ML KIT 250 ML IV SCH (07:00)
[2017-11-15] MEDS: SODIUM CHLORIDE 0.9% 1,000 ML IV SCH (08:15)
[2017-11-15] MEDS: PANTOPRAZOLE 40 MG/10 ML VIAL IV SCH (09:26)
[2017-11-15] MEDS: VANCOMYCIN 1,500 MG in D5W 5% 250 ML IV SCH (09:27)
[2017-11-15] MEDS: methylPREDNISolone SOD SUCC 40 MG/ML VL IV SCH ×2 (09:27→21:56)
[2017-11-15] MEDS: ENOXAPARIN SOD 40 MG/0.4 ML SYRINGE SC SCH (09:27)
[2017-11-15] MEDS: SODIUM CHLOR 0.9% PF (SALINE LOCK) 10ML VIAL IV SCH ×2 (09:27→21:56)
[2017-11-15] MEDS: HYDROcodone-ACET 5/325MG TAB PO PRN (16:58)
[2017-11-15] MEDS: TERBUTALINE SULFATE 5 MG TAB PO SCH ×2 (16:58→21:56)
[2017-11-15] MEDS ORDERED: TPN PER PHARMACY IV NR ×10 (20:00)
[2017-11-15] MEDS: THEOPHYLLINE 80 MG/15ml ORAL Elixir GT SCH (21:56)
[2017-11-16] VITALS (51 sets, daily range): BP systolic 92–160; BP diastolic 51–105
[2017-11-16] MEDS: ACCU-CHEK COMFORT CURVE STRIP VI SCH ×4 (00:08→18:06)
[2017-11-16] MEDS: PIPERACILLIN-TAZOB 3.375GM 50 ML IV SCH ×4 (00:08→18:07)
[2017-11-16] MEDS: InsuLIN REG 1unit/0.01ml Soln (100units/ml) SC SCH ×4 (00:08→18:00)
[2017-11-16] MEDS: LORazepam 2MG/ML-1ML VIAL IV PRN (00:08)
[2017-11-16] MEDS: IPRATROPIUM BROM 0.5 MG/2.5ML INH SOL NEB SCH ×4 (00:36→18:49)
[2017-11-16] MEDS: BUDESONIDE (INHALATION) 0.5 MG/2 ML NEB NEB SCH ×2 (00:36→06:00)
[2017-11-16] MEDS: ALBUTEROL SULF 2.5 MG/0.5ML(0.5%) NEB SOLN NEB SCH ×4 (00:36→18:50)
[2017-11-16 04:05] LABS: Albumin 2.5 g/dL (3.4-5.0); BUN/Creatinine Ratio 48.3; Calcium 8.5 mg/dL (8.5-10.1); Potassium 5.3 mmol/L (3.5-5.1); Total Protein 6.7 g/dL (6.4-8.2)
[2017-11-16] MEDS: VANCOMYCIN 1,500 MG in D5W 5% 250 ML IV SCH ×2 (04:26→20:45)
[2017-11-16] MEDS: NYSTATIN (MOUTH-THROAT) 500,000 UNITS/5 ML SUSP MT SCH ×4 (05:30→22:09)
[2017-11-16] MEDS: FUROSEMIDE 20 MG/2 ML VIAL IV SCH (05:30)
[2017-11-16 06:48] LABS: Eosinophils # (auto) 0 uL; Lymphocytes # (auto) 0.8 uL; Monocytes # (auto) 1.1 uL
[2017-11-16 06:51] LABS: Basophils # (auto) 0 uL; Basophils % (auto) 0.2 % (0.0-2.0); Eosinophils % (auto) 0.1 % (0.0-7.0); Hematocrit 49.7 % (36.0-46.0); Hemoglobin 16.6 g/dL (12.2-16.2); Lymphocytes % (auto) 5.1 % (10.0-50.0); Mean Corpuscular Hemoglobin 29.8 pg (28.0-32.0); Mean Corpuscular Hgb Conc. 33.5 g/dL (32.0-36.0); Mean Corpuscular Volume 89.2 fL (80.0-100.0); Monocytes % (auto) 6.8 % (0.0-12.0); Neutrophils # (auto) 13.9 uL; Neutrophils % (auto) 87.8 % (37.0-80.0); Platelet Count (auto) 257 10^3/uL (140-450); Red Blood Cells 5.57 10^6/uL (4.0-5.20); Red Cell Distribution Width 14.2 % (11.8-14.3); White Blood Cell 15.8 10^3/uL (4.4-10.8)
[2017-11-16] MEDS: NOREPINEPHRINE 8 MG/250ML KIT 250 ML IV SCH (07:00)
[2017-11-16 09:26] LABS: Magnesium 2.4 mg/dL (1.6-2.6); Phosphorus 3.5 mg/dL (2.5-4.90)
[2017-11-16] MEDS ORDERED: DEXTROSE (50%) 50ML SYRG IV ONE (11:45)
[2017-11-16] MEDS ORDERED: InsuLIN REG 1unit/0.01ml Soln (100units/ml) IV ONE (11:45)
[2017-11-16] MEDS ORDERED: CALCIUM GLUC 4.65meq/50ml D5AE 50 ML IV ONE (11:45)
[2017-11-16] MEDS ORDERED: SODIUM BICARBONATE 8.4% INJ 50ML SYRINGE IV ONE (11:45)
[2017-11-16] MEDS: TERBUTALINE SULFATE 5 MG TAB PO SCH ×2 (11:54→22:12)
[2017-11-16] MEDS: ENOXAPARIN SOD 40 MG/0.4 ML SYRINGE SC SCH (11:54)
[2017-11-16] MEDS: methylPREDNISolone SOD SUCC 40 MG/ML VL IV SCH ×2 (11:58→22:09)
[2017-11-16] MEDS: PANTOPRAZOLE 40 MG/10 ML VIAL IV SCH (11:59)
[2017-11-16] MEDS: SODIUM CHLOR 0.9% PF (SALINE LOCK) 10ML VIAL IV SCH ×2 (11:59→22:09)
[2017-11-16] MEDS: SODIUM CHLORIDE 0.9% 1,000 ML IV SCH ×3 (12:10→18:25)
[2017-11-16] MEDS: THEOPHYLLINE 80 MG/15ml ORAL Elixir GT SCH ×2 (12:14→22:09)
[2017-11-16] MEDS: fentaNYL Drip 2500mCg/250mlNS 250 ML IV SCH (13:57)
[2017-11-16] MEDS: HYDROcodone-ACET 10/325MG TAB PO PRN ×2 (14:34→22:10)
[2017-11-16] MEDS ORDERED: TPN PER PHARMACY IV NR ×9 (20:00)
[2017-11-17] VITALS (20 sets, daily range): BP systolic 109–149; BP diastolic 52–96
[2017-11-17] MEDS: ALBUTEROL SULF 2.5 MG/0.5ML(0.5%) NEB SOLN NEB SCH ×4 (00:22→19:08)
[2017-11-17] MEDS: IPRATROPIUM BROM 0.5 MG/2.5ML INH SOL NEB SCH ×4 (00:22→19:08)
[2017-11-17] MEDS: BUDESONIDE (INHALATION) 0.5 MG/2 ML NEB NEB SCH ×3 (00:22→19:08)
[2017-11-17] MEDS: ACCU-CHEK COMFORT CURVE STRIP VI SCH ×5 (00:26→23:42)
[2017-11-17] MEDS: PIPERACILLIN-TAZOB 3.375GM 50 ML IV SCH ×5 (00:26→23:41)
[2017-11-17] MEDS: InsuLIN REG 1unit/0.01ml Soln (100units/ml) SC SCH ×5 (00:27→23:41)
[2017-11-17] MEDS: SODIUM CHLORIDE 0.9% 1,000 ML IV SCH ×3 (01:10→19:40)
[2017-11-17] MEDS: NYSTATIN (MOUTH-THROAT) 500,000 UNITS/5 ML SUSP MT SCH ×4 (06:00→22:25)
[2017-11-17 08:16] LABS: Basophils # (auto) 0 uL; Basophils % (auto) 0.3 % (0.0-2.0); Eosinophils # (auto) 0 uL; Hematocrit 47.2 % (36.0-46.0); Hemoglobin 15.7 g/dL (12.2-16.2); Lymphocytes # (auto) 0.6 uL; Lymphocytes % (auto) 3.9 % (10.0-50.0); Mean Corpuscular Hemoglobin 29.7 pg (28.0-32.0); Mean Corpuscular Hgb Conc. 33.4 g/dL (32.0-36.0); Mean Corpuscular Volume 89.2 fL (80.0-100.0); Monocytes # (auto) 1.1 uL; Monocytes % (auto) 7.1 % (0.0-12.0); Neutrophils # (auto) 13.9 uL; Neutrophils % (auto) 88.7 % (37.0-80.0); Platelet Count (auto) 281 10^3/uL (140-450); Red Blood Cells 5.29 10^6/uL (4.0-5.20); Red Cell Distribution Width 13.6 % (11.8-14.3); White Blood Cell 15.7 10^3/uL (4.4-10.8)
[2017-11-17 08:42] LABS: Albumin 2.6 g/dL (3.4-5.0); BUN/Creatinine Ratio 41.3; Bilirubin, Total 0.7 mg/dL (0.2-1.0); Calcium 8.8 mg/dL (8.5-10.1); Magnesium 2.5 mg/dL (1.6-2.6); Potassium 3.7 mmol/L (3.5-5.1); Total Protein 6.3 g/dL (6.4-8.2)
[2017-11-17] MEDS: TERBUTALINE SULFATE 5 MG TAB PO SCH ×2 (10:00→22:25)
[2017-11-17] MEDS: PANTOPRAZOLE 40 MG/10 ML VIAL IV SCH (10:00)
[2017-11-17] MEDS: methylPREDNISolone SOD SUCC 40 MG/ML VL IV SCH ×2 (10:00→22:25)
[2017-11-17] MEDS: ENOXAPARIN SOD 40 MG/0.4 ML SYRINGE SC SCH (10:00)
[2017-11-17] MEDS: SODIUM CHLOR 0.9% PF (SALINE LOCK) 10ML VIAL IV SCH ×2 (10:00→22:25)
[2017-11-17] MEDS: THEOPHYLLINE 80 MG/15ml ORAL Elixir GT SCH ×2 (10:00→22:25)
[2017-11-17] MEDS ORDERED: SODIUM CHLORIDE 0.9% 1,000 ML IV ONE ×2 (11:45→12:00)
[2017-11-17] MEDS: HYDROcodone-ACET 10/325MG TAB PO PRN ×2 (14:26→22:45)
[2017-11-17] MEDS: VANCOMYCIN 1,500 MG in D5W 5% 250 ML IV SCH (15:06)
[2017-11-17] MEDS ORDERED: MORPHINE SULFATE 4 MG/ML SYR/VIAL IV PRN ×2 (19:30)
[2017-11-17] MEDS ORDERED: TPN PER PHARMACY IV NR ×10 (20:00)
[2017-11-18] VITALS: BP 131/76
[2017-11-18] MEDS: IPRATROPIUM BROM 0.5 MG/2.5ML INH SOL NEB SCH ×4 (00:49→18:54)
[2017-11-18] MEDS: ALBUTEROL SULF 2.5 MG/0.5ML(0.5%) NEB SOLN NEB SCH ×4 (00:49→18:53)
[2017-11-18] MEDS: SODIUM CHLORIDE 0.9% 1,000 ML IV SCH ×4 (02:42→23:49)
[2017-11-18 03:48] VITALS: BP 142/70
[2017-11-18 05:33] LABS: Albumin 2.4 g/dL (3.4-5.0); Bilirubin, Total 0.7 mg/dL (0.2-1.0); Magnesium 2.3 mg/dL (1.6-2.6); Phosphorus 3.9 mg/dL (2.5-4.90); Potassium 4.1 mmol/L (3.5-5.1)
[2017-11-18] MEDS: InsuLIN REG 1unit/0.01ml Soln (100units/ml) SC SCH ×4 (06:10→23:54)
[2017-11-18] MEDS: NYSTATIN (MOUTH-THROAT) 500,000 UNITS/5 ML SUSP MT SCH ×4 (06:10→21:33)
[2017-11-18] MEDS: PIPERACILLIN-TAZOB 3.375GM 50 ML IV SCH ×4 (06:10→23:49)
[2017-11-18] MEDS: ACCU-CHEK COMFORT CURVE STRIP VI SCH ×4 (06:10→23:54)
[2017-11-18] MEDS: BUDESONIDE (INHALATION) 0.5 MG/2 ML NEB NEB SCH ×2 (06:52→18:54)
[2017-11-18 08:00] VITALS: BP 131/79
[2017-11-18] MEDS: VANCOMYCIN 1,500 MG in D5W 5% 250 ML IV SCH (09:19)
[2017-11-18] MEDS: TERBUTALINE SULFATE 5 MG TAB PO SCH ×2 (11:03→21:33)
[2017-11-18] MEDS: SODIUM CHLOR 0.9% PF (SALINE LOCK) 10ML VIAL IV SCH ×2 (11:04→21:33)
[2017-11-18] MEDS: PANTOPRAZOLE 40 MG/10 ML VIAL IV SCH (11:04)
[2017-11-18] MEDS: methylPREDNISolone SOD SUCC 40 MG/ML VL IV SCH ×2 (11:04→21:33)
[2017-11-18] MEDS: ENOXAPARIN SOD 40 MG/0.4 ML SYRINGE SC SCH (11:04)
[2017-11-18] MEDS: THEOPHYLLINE 80 MG/15ml ORAL Elixir GT SCH ×2 (11:04→21:50)
[2017-11-18 12:00] VITALS: BP 127/66
[2017-11-18] MEDS ORDERED: SODIUM CHLORIDE 0.9% 1,000 ML IV SCH (13:00)
[2017-11-18 16:00] VITALS: BP 119/57
[2017-11-18 20:00] VITALS: BP 113/65
[2017-11-18] MEDS ORDERED: TPN PER PHARMACY IV NR ×11 (20:00)
[2017-11-19] VITALS: BP 116/61
[2017-11-19] MEDS: ALBUTEROL SULF 2.5 MG/0.5ML(0.5%) NEB SOLN NEB SCH ×4 (00:20→18:55)
[2017-11-19] MEDS: IPRATROPIUM BROM 0.5 MG/2.5ML INH SOL NEB SCH ×4 (00:20→18:55)
[2017-11-19] MEDS: VANCOMYCIN 1,500 MG in D5W 5% 250 ML IV SCH (03:20)
[2017-11-19 03:57] VITALS: BP 140/104
[2017-11-19] MEDS: PIPERACILLIN-TAZOB 3.375GM 50 ML IV SCH ×3 (04:50→18:19)
[2017-11-19] MEDS: NYSTATIN (MOUTH-THROAT) 500,000 UNITS/5 ML SUSP MT SCH ×4 (04:50→22:00)
[2017-11-19] MEDS: ACCU-CHEK COMFORT CURVE STRIP VI SCH ×3 (04:50→18:14)
[2017-11-19] MEDS: SODIUM CHLORIDE 0.9% 1,000 ML IV SCH ×4 (04:50→20:00)
[2017-11-19] MEDS: InsuLIN REG 1unit/0.01ml Soln (100units/ml) SC SCH ×3 (05:04→18:14)
[2017-11-19] MEDS: BUDESONIDE (INHALATION) 0.5 MG/2 ML NEB NEB SCH ×2 (07:18→18:55)
[2017-11-19 08:00] VITALS: BP 112/79
[2017-11-19] MEDS: methylPREDNISolone SOD SUCC 40 MG/ML VL IV SCH ×2 (09:25→22:00)
[2017-11-19] MEDS: PANTOPRAZOLE 40 MG/10 ML VIAL IV SCH (09:25)
[2017-11-19] MEDS: TERBUTALINE SULFATE 5 MG TAB PO SCH ×2 (09:25→22:00)
[2017-11-19] MEDS: ENOXAPARIN SOD 40 MG/0.4 ML SYRINGE SC SCH (09:25)
[2017-11-19] MEDS: SODIUM CHLOR 0.9% PF (SALINE LOCK) 10ML VIAL IV SCH ×2 (09:26→22:00)
[2017-11-19] MEDS: THEOPHYLLINE 80 MG/15ml ORAL Elixir GT SCH ×2 (09:35→22:00)
[2017-11-19 11:35] LABS: Basophils # (auto) 0 uL; Basophils % (auto) 0.3 % (0.0-2.0); Eosinophils # (auto) 0 uL; Eosinophils % (auto) 0.4 % (0.0-7.0); Hematocrit 46.4 % (36.0-46.0); Hemoglobin 14.7 g/dL (12.2-16.2); Lymphocytes # (auto) 0.5 uL; Lymphocytes % (auto) 4.8 % (10.0-50.0); Mean Corpuscular Hemoglobin 29.1 pg (28.0-32.0); Mean Corpuscular Hgb Conc. 31.7 g/dL (32.0-36.0); Mean Corpuscular Volume 91.8 fL (80.0-100.0); Monocytes # (auto) 0.7 uL; Neutrophils # (auto) 9.8 uL; Neutrophils % (auto) 88.5 % (37.0-80.0); Platelet Count (auto) 255 10^3/uL (140-450); Red Blood Cells 5.06 10^6/uL (4.0-5.20); Red Cell Distribution Width 14.4 % (11.8-14.3)
[2017-11-19 11:57] LABS: Albumin 2.5 g/dL (3.4-5.0); BUN/Creatinine Ratio 42.5; Bilirubin, Total 0.6 mg/dL (0.2-1.0); Calcium 8.6 mg/dL (8.5-10.1); Magnesium 2.3 mg/dL (1.6-2.6); Phosphorus 1.4 mg/dL (2.5-4.90); Potassium 3.6 mmol/L (3.5-5.1); Total Protein 6.1 g/dL (6.4-8.2)
[2017-11-19 12:14] VITALS: BP 98/65
[2017-11-19] MEDS ORDERED: POTASSIUM PHOSPHATE 44 MEQ in D5W 5% 250 ML IV ONE (13:00)
[2017-11-19 17:12] VITALS: BP 153/69
[2017-11-19] MEDS ORDERED: TPN PER PHARMACY IV NR ×9 (20:00)
[2017-11-19 20:05] VITALS: BP 113/68
[2017-11-19] MEDS: VANCOMYCIN 1,250 MG in D5W 5% 250 ML IV SCH (21:00)
[2017-11-20] VITALS (8 sets, daily range): BP systolic 114–173; BP diastolic 61–83
[2017-11-20] MEDS: ALBUTEROL SULF 2.5 MG/0.5ML(0.5%) NEB SOLN NEB SCH ×4 (00:28→18:59)
[2017-11-20] MEDS: IPRATROPIUM BROM 0.5 MG/2.5ML INH SOL NEB SCH ×4 (00:29→18:58)
[2017-11-20] MEDS: SODIUM CHLORIDE 0.9% 1,000 ML IV SCH (05:06)
[2017-11-20 05:30] LABS: Basophils # (auto) 0.1 uL; Basophils % (auto) 0.6 % (0.0-2.0); Eosinophils # (auto) 0 uL; Eosinophils % (auto) 0.1 % (0.0-7.0); Hematocrit 45.9 % (36.0-46.0); Hemoglobin 15.3 g/dL (12.2-16.2); Lymphocytes # (auto) 0.3 uL; Lymphocytes % (auto) 3.4 % (10.0-50.0); Mean Corpuscular Hemoglobin 30.2 pg (28.0-32.0); Mean Corpuscular Hgb Conc. 33.4 g/dL (32.0-36.0); Mean Corpuscular Volume 90.6 fL (80.0-100.0); Monocytes # (auto) 0.5 uL; Monocytes % (auto) 5.9 % (0.0-12.0); Neutrophils # (auto) 7.7 uL; Platelet Count (auto) 299 10^3/uL (140-450); Red Blood Cells 5.06 10^6/uL (4.0-5.20); Red Cell Distribution Width 14.1 % (11.8-14.3); White Blood Cell 8.6 10^3/uL (4.4-10.8)
[2017-11-20 05:55] LABS: Albumin 2.5 g/dL (3.4-5.0); Bilirubin, Total 0.6 mg/dL (0.2-1.0); Calcium 8.7 mg/dL (8.5-10.1); Magnesium 2.4 mg/dL (1.6-2.6); Phosphorus 3.7 mg/dL (2.5-4.90); Potassium 3.8 mmol/L (3.5-5.1); Total Protein 6.2 g/dL (6.4-8.2)
[2017-11-20] MEDS: NYSTATIN (MOUTH-THROAT) 500,000 UNITS/5 ML SUSP MT SCH ×4 (06:00→23:16)
[2017-11-20] MEDS: InsuLIN REG 1unit/0.01ml Soln (100units/ml) SC SCH ×2 (06:00)
[2017-11-20] MEDS: PIPERACILLIN-TAZOB 3.375GM 50 ML IV SCH ×4 (06:00→17:55)
[2017-11-20] MEDS: ACCU-CHEK COMFORT CURVE STRIP VI SCH ×2 (06:00)
[2017-11-20] MEDS: BUDESONIDE (INHALATION) 0.5 MG/2 ML NEB NEB SCH ×2 (06:06→18:59)
[2017-11-20] MEDS: TERBUTALINE SULFATE 5 MG TAB PO SCH ×2 (10:00→23:16)
[2017-11-20] MEDS: THEOPHYLLINE 80 MG/15ml ORAL Elixir GT SCH ×2 (10:00→23:15)
[2017-11-20] MEDS: ALBUMIN 25% 100 ML IV SCH ×2 (11:00→12:00)
[2017-11-20] MEDS: PANTOPRAZOLE 40 MG/10 ML VIAL IV SCH (11:11)
[2017-11-20] MEDS: ENOXAPARIN SOD 40 MG/0.4 ML SYRINGE SC SCH (11:12)
[2017-11-20] MEDS: methylPREDNISolone SOD SUCC 40 MG/ML VL IV SCH ×2 (11:12→23:16)
[2017-11-20] MEDS: SODIUM CHLOR 0.9% PF (SALINE LOCK) 10ML VIAL IV SCH ×2 (11:14→23:16)
[2017-11-20] MEDS: BOOST 8 ounces PO SCH ×3 (12:24→23:16)
[2017-11-20] MEDS: VANCOMYCIN 1,250 MG in D5W 5% 250 ML IV SCH (15:15)
[2017-11-20] MEDS ORDERED: TPN PER PHARMACY IV NR ×9 (20:00)
[2017-11-20] MEDS ORDERED: ALPRAZolam 0.25 MG TAB PO ONE (21:30)
[2017-11-21] MEDS: PIPERACILLIN-TAZOB 3.375GM 50 ML IV SCH ×4 (00:08→18:01)
[2017-11-21] MEDS: ALBUTEROL SULF 2.5 MG/0.5ML(0.5%) NEB SOLN NEB SCH ×4 (00:38→19:07)
[2017-11-21] MEDS: IPRATROPIUM BROM 0.5 MG/2.5ML INH SOL NEB SCH ×4 (00:38→19:07)
[2017-11-21 02:38] LABS: Basophils # (auto) 0 uL; Basophils % (auto) 0.1 % (0.0-2.0); Eosinophils # (auto) 0 uL; Eosinophils % (auto) 0.4 % (0.0-7.0); Hematocrit 43.1 % (36.0-46.0); Hemoglobin 14.6 g/dL (12.2-16.2); Lymphocytes # (auto) 0.4 uL; Lymphocytes % (auto) 4.7 % (10.0-50.0); Mean Corpuscular Hemoglobin 30.1 pg (28.0-32.0); Mean Corpuscular Hgb Conc. 33.7 g/dL (32.0-36.0); Mean Corpuscular Volume 89.4 fL (80.0-100.0); Monocytes # (auto) 0.6 uL; Monocytes % (auto) 6.7 % (0.0-12.0); Neutrophils # (auto) 7.5 uL; Neutrophils % (auto) 88.1 % (37.0-80.0); Nucleated Red Blood Cells % 0.1 %; Platelet Count (auto) 305 10^3/uL (140-450); Red Blood Cells 4.83 10^6/uL (4.0-5.20); Red Cell Distribution Width 14.2 % (11.8-14.3); White Blood Cell 8.5 10^3/uL (4.4-10.8)
[2017-11-21 02:59] LABS: Albumin 3.2 g/dL (3.4-5.0); BUN/Creatinine Ratio 35.1; Bilirubin, Total 0.9 mg/dL (0.2-1.0); Calcium 8.8 mg/dL (8.5-10.1); Magnesium 2.6 mg/dL (1.6-2.6); Potassium 3.8 mmol/L (3.5-5.1); Total Protein 6.4 g/dL (6.4-8.2)
[2017-11-21 04:26] VITALS: BP 123/66
[2017-11-21] MEDS: NYSTATIN (MOUTH-THROAT) 500,000 UNITS/5 ML SUSP MT SCH ×4 (06:16→22:31)
[2017-11-21] MEDS: BOOST 8 ounces PO SCH ×4 (06:16→22:00)
[2017-11-21] MEDS: BUDESONIDE (INHALATION) 0.5 MG/2 ML NEB NEB SCH ×2 (06:37→19:13)
[2017-11-21 09:00] VITALS: BP 138/71
[2017-11-21] MEDS: SODIUM CHLOR 0.9% PF (SALINE LOCK) 10ML VIAL IV SCH ×2 (10:04→22:00)
[2017-11-21] MEDS: methylPREDNISolone SOD SUCC 40 MG/ML VL IV SCH ×2 (10:04→22:31)
[2017-11-21] MEDS: PANTOPRAZOLE 40 MG/10 ML VIAL IV SCH (10:05)
[2017-11-21] MEDS: TERBUTALINE SULFATE 5 MG TAB PO SCH ×2 (10:05→22:15)
[2017-11-21] MEDS: THEOPHYLLINE 80 MG/15ml ORAL Elixir GT SCH ×2 (10:06→22:00)
[2017-11-21 13:00] VITALS: BP 143/84
[2017-11-21 17:00] VITALS: BP 126/65
[2017-11-21] MEDS ORDERED: SERTRALINE HCL 50 MG TAB PO ONE (19:00)
[2017-11-21] MEDS ORDERED: ZOLPIDEM TARTRATE 5 MG TAB PO PRN (19:15)
[2017-11-21 22:00] VITALS: BP 118/84
[2017-11-21] MEDS: VANCOMYCIN 1GM/250ML 250 ML IV SCH (22:00)
[2017-11-21] MEDS: HYDROcodone-ACET 10/325MG TAB PO PRN (23:57)
[2017-11-22] MEDS: ALBUTEROL SULF 2.5 MG/0.5ML(0.5%) NEB SOLN NEB SCH ×4 (00:55→18:40)
[2017-11-22] MEDS: IPRATROPIUM BROM 0.5 MG/2.5ML INH SOL NEB SCH ×4 (00:55→18:40)
[2017-11-22 05:00] VITALS: BP 111/50
[2017-11-22] MEDS: PIPERACILLIN-TAZOB 3.375GM 50 ML IV SCH ×4 (05:47→17:19)
[2017-11-22 05:49] LABS: Basophils # (auto) 0.1 uL; Basophils % (auto) 0.8 % (0.0-2.0); Eosinophils # (auto) 0 uL; Eosinophils % (auto) 0.1 % (0.0-7.0); Hematocrit 46.3 % (36.0-46.0); Hemoglobin 15.4 g/dL (12.2-16.2); Lymphocytes # (auto) 0.3 uL; Lymphocytes % (auto) 3.3 % (10.0-50.0); Mean Corpuscular Hemoglobin 29.9 pg (28.0-32.0); Mean Corpuscular Hgb Conc. 33.2 g/dL (32.0-36.0); Mean Corpuscular Volume 90.1 fL (80.0-100.0); Monocytes # (auto) 0.3 uL; Monocytes % (auto) 4.3 % (0.0-12.0); Neutrophils # (auto) 7.4 uL; Neutrophils % (auto) 91.5 % (37.0-80.0); Nucleated Red Blood Cells % 0.1 %; Platelet Count (auto) 283 10^3/uL (140-450); Red Blood Cells 5.14 10^6/uL (4.0-5.20)
[2017-11-22] MEDS: BOOST 8 ounces PO SCH ×4 (06:00→22:38)
[2017-11-22 06:10] LABS: Folate (Folic Acid) 7.83 ng/mL (5.38-24)
[2017-11-22 06:13] LABS: Albumin 3.1 g/dL (3.4-5.0); Bilirubin, Total 1.1 mg/dL (0.2-1.0); Calcium 8.9 mg/dL (8.5-10.1); Potassium 3.9 mmol/L (3.5-5.1); Total Protein 6.6 g/dL (6.4-8.2)
[2017-11-22] MEDS: NYSTATIN (MOUTH-THROAT) 500,000 UNITS/5 ML SUSP MT SCH ×4 (06:19→22:36)
[2017-11-22] MEDS: BUDESONIDE (INHALATION) 0.5 MG/2 ML NEB NEB SCH ×2 (06:36→18:40)
[2017-11-22 09:00] VITALS: BP 112/64
[2017-11-22] MEDS: THEOPHYLLINE 80 MG/15ml ORAL Elixir GT SCH ×2 (09:49→22:37)
[2017-11-22] MEDS: SERTRALINE HCL 50 MG TAB PO SCH (09:49)
[2017-11-22] MEDS: TERBUTALINE SULFATE 5 MG TAB PO SCH ×2 (09:49→22:38)
[2017-11-22] MEDS: PANTOPRAZOLE 40 MG/10 ML VIAL IV SCH (09:49)
[2017-11-22] MEDS: methylPREDNISolone SOD SUCC 40 MG/ML VL IV SCH ×2 (09:49→22:37)
[2017-11-22] MEDS: SODIUM CHLOR 0.9% PF (SALINE LOCK) 10ML VIAL IV SCH ×2 (09:49→22:37)
[2017-11-22 16:49] VITALS: BP 144/64
[2017-11-22 21:57] VITALS: BP 114/59
[2017-11-22] MEDS: VANCOMYCIN 1GM/250ML 250 ML IV SCH (23:00)
[2017-11-23] VITALS (7 sets, daily range): BP systolic 108–145; BP diastolic 62–81
[2017-11-23] MEDS: PIPERACILLIN-TAZOB 3.375GM 50 ML IV SCH ×3 (01:00→11:56)
[2017-11-23] MEDS: NYSTATIN (MOUTH-THROAT) 500,000 UNITS/5 ML SUSP MT SCH ×2 (05:46→11:56)
[2017-11-23] MEDS: IPRATROPIUM BROM 0.5 MG/2.5ML INH SOL NEB SCH ×3 (06:15→12:07)
[2017-11-23] MEDS: ALBUTEROL SULF 2.5 MG/0.5ML(0.5%) NEB SOLN NEB SCH ×3 (06:15→12:07)
[2017-11-23] MEDS: BUDESONIDE (INHALATION) 0.5 MG/2 ML NEB NEB SCH (06:16)
[2017-11-23] MEDS: BOOST 8 ounces PO SCH ×2 (08:58→11:57)
[2017-11-23] MEDS: SODIUM CHLOR 0.9% PF (SALINE LOCK) 10ML VIAL IV SCH (10:30)
[2017-11-23] MEDS: PANTOPRAZOLE 40 MG/10 ML VIAL IV SCH (10:30)
[2017-11-23] MEDS: SERTRALINE HCL 50 MG TAB PO SCH (10:30)
[2017-11-23] MEDS: methylPREDNISolone SOD SUCC 40 MG/ML VL IV SCH (10:30)
[2017-11-23] MEDS: TERBUTALINE SULFATE 5 MG TAB PO SCH (10:31)
[2017-11-23] MEDS: THEOPHYLLINE 80 MG/15ml ORAL Elixir GT SCH (10:32)
[2017-11-23] MEDS ORDERED: LOPERAMIDE HCL 2 MG CAP PO ONE (12:00)
== END 2017-11-23 18:00 | DRG 870 ==
LOC: ER 15:14 → TELE 15:15 → ICU WEST 11-04 23:16 → DOU IN ICU 11-17 17:05 → WEST WING 11-20 21:50 → TELE-WESTW 11-20 21:54
PROVIDERS: ADMIT Internal Medicine; ATTEND Family Medicine
PROC: 5A09357 Assistance with Respiratory Ventilation, Less than 24 Consecutive Hours, Continuous Positive Airway Pressure (ICD-10-PCS; 2017-11-03)
PROC: 5A1955Z Respiratory Ventilation, Greater than 96 Consecutive Hours (ICD-10-PCS; principal; 2017-11-04)
PROC: 0BH17EZ Insertion of Endotracheal Airway into Trachea, Via Natural or Artificial Opening (ICD-10-PCS; 2017-11-04)
PROC: 02HV33Z Insertion of Infusion Device into Superior Vena Cava, Percutaneous Approach (ICD-10-PCS; 2017-11-10)
DX: A41.9 Sepsis, unspecified organism (principal); N17.0 Acute kidney failure with tubular necrosis; J96.02 Acute respiratory failure with hypercapnia; J18.9 Pneumonia, unspecified organism; E43 Unspecified severe protein-calorie malnutrition; G93.1 Anoxic brain damage, not elsewhere classified; G93.41 Metabolic encephalopathy; J44.0 Chronic obstructive pulmonary disease with (acute) lower respiratory infection; I11.0 Hypertensive heart disease with heart failure; I48.91 Unspecified atrial fibrillation; I50.9 Heart failure, unspecified; J44.1 Chronic obstructive pulmonary disease with (acute) exacerbation; Z68.42 Body mass index [BMI] 45.0-49.9, adult; I45.10 Unspecified right bundle-branch block; E66.01 Morbid (severe) obesity due to excess calories; E78.5 Hyperlipidemia, unspecified; E86.0 Dehydration; G47.30 Sleep apnea, unspecified; I70.0 Atherosclerosis of aorta; K80.20 Calculus of gallbladder without cholecystitis without obstruction; Y95 Nosocomial condition; Z79.899 Other long term (current) drug therapy; Z87.891 Personal history of nicotine dependence; Z90.710 Acquired absence of both cervix and uterus; Z99.81 Dependence on supplemental oxygen; Z68.35 Body mass index [BMI] 35.0-35.9, adult
CPT/HCPCS: 36415; 36569; 36600; 70450; 71045; 71275; 76604; 76705; 76775; 80048; 80053; 80061; 80198; 80202; 81001; 82040; 82140; 82607; 82746; 82805; 82962; 83605; 83735; 83880; 84100; 84436; 84443; 84478; 84480; 84484; 85007; 85025; 85027; 85610; 87040; 87070; 87081; 87086; 87205; 87400; 92610; 93005; 93970; 94003; 94640; 94644; 94645; 94660; 95819; 96361; 96374; 96375; 97110; 97163; 97530; 99291; C9113; J0330; J0610; J1815; J1956; J2250; J2543; J2704; J3010; J7060; J7131

== ENCOUNTER 2021-04-17 20:01 | Emergency (ER) | payer OTHER, MEDICAID ==
[~2021-04-17] VITALS: Ht 167.6 cm; Wt 113.4 kg
[~2021-04-17 20:01] MED LIST: ALBU2TAB4 PO; ALBUAER3 IN; DIGO0.12 PO; LEVO175T66 PO; METO25TA5 PO; PRAV20TA3 PO; SERT50TA19 PO; UMEC1AER IN; [UNRECOGNIZED DRUG - CODE] PO
[2021-04-18] MEDS ORDERED: HYDROcodone-ACET 5/325MG TAB PO ONE
[2021-04-18] MEDS ORDERED: LIDOCAINE 1% HCL (LOCAL ANESTH.) INJ 20ML MDV ID ONE ×2 (02:00→02:45)
[2021-04-18] MEDS ORDERED: LIDOCAINE 1% HCL (LOCAL ANESTH.) INJ 20ML MDV ONE (02:05)
[2021-04-18 03:40] VITALS: BP 141/78
== END 2021-04-18 02:50 | disposition home or self-care (01) ==
LOC: ER 20:01 → EDBD 20:01 → ER 04-18 02:50
DX: S81.011A Laceration without foreign body, right knee, initial encounter (principal); M17.11 Unilateral primary osteoarthritis, right knee; I10 Essential (primary) hypertension; J44.9 Chronic obstructive pulmonary disease, unspecified; E78.5 Hyperlipidemia, unspecified; Z90.710 Acquired absence of both cervix and uterus; Z79.899 Other long term (current) drug therapy; W01.0XXA Fall on same level from slipping, tripping and stumbling without subsequent striking against object, initial encounter; Y93.89 Activity, other specified; Y92.89 Other specified places as the place of occurrence of the external cause; Y99.8 Other external cause status
CPT/HCPCS: 12004; 73562; 93005; 99285; J2001